=== PATIENT | male | born 1940 | race Caucasian/White ===

== ENCOUNTER 2019-07-28 12:04 | Inpatient (IN) ==
[2019-07-28 12:52] LABS: Basophils # 0.1 10*3/uL (0.0-0.2); Basophils % 0.3 % (0.0-0.8); Hematocrit 42.2 VOL% (42.0-52.0); Hemoglobin 13.6 GM/DL (14.0-18.0); Immature Granulocytes % 0.9 %; Immature Granulocytes Absolute 0.23 #; Lymphocytes # 1.2 10*3/uL (1.4-4.0); Lymphocytes % 4.8 % (21.2-54.2); Mean Corpuscular HGB Conc 32.2 GM/DL (32-36); Mean Corpuscular Volume 95.7 FL (87-102); Mean Platelet Volume 10.5 FL (9.6-12.0); Platelet Count 233 T/CUMM (130-400); Red Blood Count 4.41 MC/CUMM (3.8-5.5); Red Cell Distribution Width 15.6 % (9.3-17.3); White Blood Count 25.8 T/CUMM (4-12)
[2019-07-28] MEDS ORDERED: FUROSEMIDE 100 MG/10 ML VIAL IV STA (13:02)
[2019-07-28] MEDS ORDERED: cefTRIAXone 1,000 MG in SODIUM CHLORIDE 0.9% 100 ML IV STA (13:03)
[2019-07-28] MEDS ORDERED: AZITHROMYCIN INJ 500 MG in SODIUM CHLORIDE 0.9% 250 ML IV STA (13:03)
[2019-07-28 13:12] LABS: Lymphocytes 5 % (20-55); Platelet Estimate Adequate; Segmented Neutrophils 87 % (50-85); Total Cells Counted 100
[2019-07-28 13:15] LABS: Albumin 2.3 G/DL (3.4-5.0); Bilirubin,Total 2.8 MG/DL (0.2-1.0); Calcium 9.1 MG/DL (8.5-10.1); Osmolality,Calculated 283.5 MOS/KG (273-304); Total Protein 7.2 G/DL (6.4-8.3)
[2019-07-28 13:17] LABS: Apearance,Urine Slightly Hazy (Clear); Bacteria,Urine Many /HPF (Few); Bilirubin,Urine Negative (Negative); Blood, Urine Large mg/dL (Negative); Glucose,Urine (UA) Negative (Negative); Ketones,Urine Negative (Negative); Mucus,Urine Occasional /LPF (Occasional); Nitrite,Urine Positive (Negative); Protein,Urine 30 MG/DL; RBC,Urine 2 /HPF (0-4); Urine Specific Gravity 1.018 (1.001-1.035); WBC,Urine 42 /HPF (0-6)
[2019-07-28 13:18] LABS: Urine Color Yellow (Yellow)
[2019-07-28] MEDS ORDERED: guaiFENesin/DM ER 600-30 MG TABLET PO PRN (15:12)
[2019-07-28] MEDS ORDERED: ONDANSETRON 4 MG/2 ML VIAL IV PRN (15:12)
[2019-07-28] MEDS ORDERED: ALBUTEROL 2.5 MG/3 ML NEB RESP TX PRN (15:12)
[2019-07-28] MEDS ORDERED: ENOXAPARIN 40 MG/0.4 ML SYRINGE SUBCUT SCH (15:30)
[2019-07-28] MEDS: ALBUTEROL/IPRATROPIUM 3 ML NEB RESP TX SCH (19:55)
[2019-07-28] MEDS: CALCIUM (CARBONATE)/VITAMIN D 600 MG-400 UNIT TABLET PO SCH (21:35)
[2019-07-28] MEDS: traZODone 50 MG TABLET PO SCH (21:35)
[2019-07-28] MEDS: MELATONIN 3 MG TABLET PO SCH (21:35)
[2019-07-28] MEDS: APIXABAN 2.5 MG TABLET PO SCH (23:14)
[2019-07-29] MEDS: ALBUTEROL/IPRATROPIUM 3 ML NEB RESP TX SCH ×4 (01:43→19:10)
[2019-07-29 04:37] LABS: Basophils % 0.2 % (0.0-0.8); Eosinophils # 0.1 10*3/uL (0.0-0.87); Eosinophils % 0.5 % (0.00-10.9); Hematocrit 43.5 VOL% (42.0-52.0); Hemoglobin 13.8 GM/DL (14.0-18.0); Immature Granulocytes % 0.6 %; Immature Granulocytes Absolute 0.11 #; Lymphocytes # 1.6 10*3/uL (1.4-4.0); Lymphocytes % 8.8 % (21.2-54.2); Mean Corpuscular HGB Conc 31.7 GM/DL (32-36); Mean Corpuscular Volume 95.8 FL (87-102); Monocytes % 8.6 % (1.7-12.7); Neutrophils % 81.3 % (38.7-73.9); Platelet Count 230 T/CUMM (130-400); Red Blood Count 4.54 MC/CUMM (3.8-5.5); Red Cell Distribution Width 15.6 % (9.3-17.3); White Blood Count 17.7 T/CUMM (4-12)
[2019-07-29 05:06] LABS: Albumin 2.3 G/DL (3.4-5.0); Bilirubin,Total 1.5 MG/DL (0.2-1.0); Calcium 8.7 MG/DL (8.5-10.1); Osmolality,Calculated 279.8 MOS/KG (273-304); Total Protein 7.2 G/DL (6.4-8.3)
[2019-07-29] MEDS: traZODone 50 MG TABLET PO SCH ×2 (09:12→21:31)
[2019-07-29] MEDS: THEOPHYLLINE ER 300 MG TABLET PO SCH (09:13)
[2019-07-29] MEDS: APIXABAN 2.5 MG TABLET PO SCH ×2 (09:13→21:31)
[2019-07-29] MEDS: PANTOPRAZOLE 40 MG TABLET PO SCH (09:13)
[2019-07-29] MEDS: FUROSEMIDE 40 MG/4 ML VIAL IV SCH (09:13)
[2019-07-29] MEDS: CALCIUM (CARBONATE)/VITAMIN D 600 MG-400 UNIT TABLET PO SCH ×2 (09:13→21:31)
[2019-07-29] MEDS: POTASSIUM CHLORIDE 20 MEQ TABLET PO PRN ×4 (09:13→21:31)
[2019-07-29] MEDS: DIGOXIN 0.125 MG TABLET PO SCH (09:15)
[2019-07-29] MEDS: cefTRIAXone 1,000 MG in SYRINGE 1 EACH IV SCH (09:16)
[2019-07-29] MEDS: TIMOLOL 0.5% OPH SOLN 5 ML BOTTLE BOTH EYES SCH (09:16)
[2019-07-29] MEDS: AZITHROMYCIN INJ 250 MG in SODIUM CHLORIDE 0.9% 250 ML IV SCH (14:05)
[2019-07-29] MEDS: MELATONIN 3 MG TABLET PO SCH (21:31)
[2019-07-30] MEDS: ALBUTEROL/IPRATROPIUM 3 ML NEB RESP TX SCH ×4 (01:10→20:05)
[2019-07-30 05:40] LABS: Basophils % 0.4 % (0.0-0.8); Eosinophils # 0.3 10*3/uL (0.0-0.87); Eosinophils % 2.6 % (0.00-10.9); Hematocrit 45.1 VOL% (42.0-52.0); Hemoglobin 13.9 GM/DL (14.0-18.0); Immature Granulocytes % 0.6 %; Immature Granulocytes Absolute 0.06 #; Lymphocytes # 1.1 10*3/uL (1.4-4.0); Mean Corpuscular HGB Conc 30.8 GM/DL (32-36); Mean Corpuscular Volume 98.3 FL (87-102); Mean Platelet Volume 10.4 FL (9.6-12.0); Monocytes % 11.5 % (1.7-12.7); Neutrophils % 73.9 % (38.7-73.9); Platelet Count 240 T/CUMM (130-400); Red Blood Count 4.59 MC/CUMM (3.8-5.5); Red Cell Distribution Width 15.4 % (9.3-17.3); White Blood Count 10.4 T/CUMM (4-12)
[2019-07-30 06:16] LABS: Albumin 2.3 G/DL (3.4-5.0); Bilirubin,Total 0.7 MG/DL (0.2-1.0); Calcium 8.9 MG/DL (8.5-10.1); Osmolality,Calculated 280.8 MOS/KG (273-304); Total Protein 7.1 G/DL (6.4-8.3)
[2019-07-30] MEDS: POTASSIUM CHLORIDE 20 MEQ TABLET PO PRN ×2 (06:17→08:07)
[2019-07-30] MEDS: TIMOLOL 0.5% OPH SOLN 5 ML BOTTLE BOTH EYES SCH (08:04)
[2019-07-30] MEDS: FUROSEMIDE 40 MG/4 ML VIAL IV SCH (08:04)
[2019-07-30] MEDS: cefTRIAXone 1,000 MG in SYRINGE 1 EACH IV SCH (08:04)
[2019-07-30] MEDS: DIGOXIN 0.125 MG TABLET PO SCH (08:05)
[2019-07-30] MEDS: APIXABAN 2.5 MG TABLET PO SCH ×2 (08:05→20:34)
[2019-07-30] MEDS: traZODone 50 MG TABLET PO SCH ×2 (08:06→20:34)
[2019-07-30] MEDS: THEOPHYLLINE ER 300 MG TABLET PO SCH (08:06)
[2019-07-30] MEDS: PANTOPRAZOLE 40 MG TABLET PO SCH (08:07)
[2019-07-30] MEDS: CALCIUM (CARBONATE)/VITAMIN D 600 MG-400 UNIT TABLET PO SCH ×2 (08:08→20:34)
[2019-07-30] MEDS: BISACODYL 5 MG TABLET PO SCH (08:09)
[2019-07-30] MEDS: AZITHROMYCIN INJ 250 MG in SODIUM CHLORIDE 0.9% 250 ML IV SCH (12:08)
[2019-07-30] MEDS: MELATONIN 3 MG TABLET PO SCH (20:34)
[2019-07-31] MEDS: ALBUTEROL/IPRATROPIUM 3 ML NEB RESP TX SCH ×4 (01:45→19:36)
[2019-07-31] MEDS: traZODone 50 MG TABLET PO SCH ×2 (08:01→21:00)
[2019-07-31] MEDS: FUROSEMIDE 40 MG/4 ML VIAL IV SCH (08:01)
[2019-07-31] MEDS: cefTRIAXone 1,000 MG in SYRINGE 1 EACH IV SCH (08:02)
[2019-07-31 08:07] LABS: Basophils % 0.4 % (0.0-0.8); Eosinophils # 0.4 10*3/uL (0.0-0.87); Eosinophils % 3.9 % (0.00-10.9); Hematocrit 44.9 VOL% (42.0-52.0); Hemoglobin 13.8 GM/DL (14.0-18.0); Immature Granulocytes Absolute 0.09 #; Lymphocytes # 1.2 10*3/uL (1.4-4.0); Lymphocytes % 12.8 % (21.2-54.2); Mean Corpuscular HGB Conc 30.7 GM/DL (32-36); Mean Corpuscular Volume 97.6 FL (87-102); Mean Platelet Volume 10.2 FL (9.6-12.0); Monocytes % 11.5 % (1.7-12.7); Neutrophils % 70.4 % (38.7-73.9); Platelet Count 242 T/CUMM (130-400); Red Cell Distribution Width 15.4 % (9.3-17.3); White Blood Count 9.3 T/CUMM (4-12)
[2019-07-31] MEDS: DIGOXIN 0.125 MG TABLET PO SCH (08:07)
[2019-07-31] MEDS: THEOPHYLLINE ER 300 MG TABLET PO SCH (08:07)
[2019-07-31] MEDS: PANTOPRAZOLE 40 MG TABLET PO SCH (08:08)
[2019-07-31] MEDS: APIXABAN 2.5 MG TABLET PO SCH ×2 (08:08→20:21)
[2019-07-31] MEDS: AZITHROMYCIN 250 MG TABLET PO SCH (08:08)
[2019-07-31] MEDS: TIMOLOL 0.5% OPH SOLN 5 ML BOTTLE BOTH EYES SCH (08:08)
[2019-07-31] MEDS: CALCIUM (CARBONATE)/VITAMIN D 600 MG-400 UNIT TABLET PO SCH ×2 (08:08→20:17)
[2019-07-31 08:27] LABS: Calcium 9.1 MG/DL (8.5-10.1); Osmolality,Calculated 280.8 MOS/KG (273-304)
[2019-07-31] MEDS: LEVOFLOXACIN 750 MG TABLET PO SCH (12:49)
[2019-07-31] MEDS: MELATONIN 3 MG TABLET PO SCH (21:00)
[2019-08-01] MEDS: ALBUTEROL/IPRATROPIUM 3 ML NEB RESP TX SCH ×4 (01:49→19:37)
[2019-08-01 06:22] LABS: Basophils # 0.1 10*3/uL (0.0-0.2); Basophils % 0.5 % (0.0-0.8); Eosinophils # 0.4 10*3/uL (0.0-0.87); Eosinophils % 3.8 % (0.00-10.9); Hematocrit 44.9 VOL% (42.0-52.0); Hemoglobin 13.7 GM/DL (14.0-18.0); Immature Granulocytes % 1.4 %; Immature Granulocytes Absolute 0.15 #; Lymphocytes # 1.4 10*3/uL (1.4-4.0); Lymphocytes % 12.8 % (21.2-54.2); Mean Corpuscular HGB Conc 30.5 GM/DL (32-36); Mean Platelet Volume 10.5 FL (9.6-12.0); Monocytes % 10.1 % (1.7-12.7); Neutrophils % 71.4 % (38.7-73.9); Platelet Count 288 T/CUMM (130-400); Red Blood Count 4.58 MC/CUMM (3.8-5.5); Red Cell Distribution Width 15.2 % (9.3-17.3); White Blood Count 10.7 T/CUMM (4-12)
[2019-08-01 07:06] LABS: Calcium 9.4 MG/DL (8.5-10.1); Osmolality,Calculated 280.7 MOS/KG (273-304)
[2019-08-01] MEDS: BISACODYL 5 MG TABLET PO SCH (09:11)
[2019-08-01] MEDS: DIGOXIN 0.125 MG TABLET PO SCH (09:11)
[2019-08-01] MEDS: cefTRIAXone 1,000 MG in SYRINGE 1 EACH IV SCH ×2 (09:11→09:17)
[2019-08-01] MEDS: CALCIUM (CARBONATE)/VITAMIN D 600 MG-400 UNIT TABLET PO SCH ×2 (09:12→20:22)
[2019-08-01] MEDS: APIXABAN 2.5 MG TABLET PO SCH ×2 (09:12→20:22)
[2019-08-01] MEDS: PANTOPRAZOLE 40 MG TABLET PO SCH (09:12)
[2019-08-01] MEDS: THEOPHYLLINE ER 300 MG TABLET PO SCH (09:12)
[2019-08-01] MEDS: AZITHROMYCIN 250 MG TABLET PO SCH (09:12)
[2019-08-01] MEDS: TIMOLOL 0.5% OPH SOLN 5 ML BOTTLE BOTH EYES SCH (09:16)
[2019-08-01] MEDS: traZODone 50 MG TABLET PO SCH (09:16)
[2019-08-01] MEDS: FUROSEMIDE 40 MG/4 ML VIAL IV SCH (09:16)
[2019-08-01] MEDS: LEVOFLOXACIN 750 MG TABLET PO SCH (12:11)
[2019-08-02] MEDS: ALBUTEROL/IPRATROPIUM 3 ML NEB RESP TX SCH ×2 (01:00→07:12)
[2019-08-02 07:26] VITALS: BP 124/78
[2019-08-02] MEDS: APIXABAN 2.5 MG TABLET PO SCH (10:25)
[2019-08-02] MEDS: CALCIUM (CARBONATE)/VITAMIN D 600 MG-400 UNIT TABLET PO SCH (10:25)
[2019-08-02] MEDS: AZITHROMYCIN 250 MG TABLET PO SCH (10:25)
[2019-08-02] MEDS: PANTOPRAZOLE 40 MG TABLET PO SCH (10:25)
[2019-08-02] MEDS: THEOPHYLLINE ER 300 MG TABLET PO SCH (10:25)
[2019-08-02] MEDS: cefTRIAXone 1,000 MG in SYRINGE 1 EACH IV SCH (10:26)
[2019-08-02] MEDS: DIGOXIN 0.125 MG TABLET PO SCH (10:30)
[2019-08-02] MEDS: TIMOLOL 0.5% OPH SOLN 5 ML BOTTLE BOTH EYES SCH (10:32)
[2019-08-02] MEDS: LEVOFLOXACIN 750 MG TABLET PO SCH (12:35)
== END 2019-08-02 12:30 | DRG 291 ==
LOC: EDBD → EDUNIT# → N.ED 12:04 → SUPCPDRO 15:12 → N.EDINP 15:12 → SUATTDRO 15:12 → N.CC 15:27 → N.5E 07-31 17:59
PROVIDERS: ADMIT Family Medicine; ATTEND Family Medicine